=== PATIENT | male | born 1985 | race Caucasian/White ===

== ENCOUNTER 2018-03-26 12:09 | Emergency (ER) | payer OTHER ==
[~2018-03-26] VITALS: Ht 175.3 cm; Wt 76.2 kg
[~2018-03-26 12:09] MED LIST: ACETAMINOPHEN-1 EAC1 PO; CIPRO500 M1 PO; HYDROCODON-ACE1 EAC7 PO; HYDROXYZINE HCL25 M1; KEFLEX500 MG PO; LEVSIN0.125 MG PO; NAPROSYN500 MG PO; NOHOMEMEDICATIONS; PERCOCET 7.5-31 EACH PO; ROBAXIN 750 MG750 M1 PO; SENOKOT-S1 TA1 PO; ULTRAM 50MG TAB50 MG PO
[2018-03-26] MEDS ORDERED: ACETAMINOPHEN-1 EAC1 PO (12:29)
[2018-03-26] MEDS ORDERED: IBUPROFEN 600600 M1 PO (12:29)
[2018-03-26] MEDS ORDERED: KEFLEX500 M1 PO (12:29)
[2018-03-26 12:54] VITALS: BP 167/84
== END 2018-03-26 12:55 | disposition home or self-care (01) ==
LOC: M.ERS 12:09
DX: S61.012A Laceration without foreign body of left thumb without damage to nail, initial encounter (principal); F41.9 Anxiety disorder, unspecified; F17.210 Nicotine dependence, cigarettes, uncomplicated; W26.0XXA Contact with knife, initial encounter; Y93.89 Activity, other specified; Y92.89 Other specified places as the place of occurrence of the external cause; Y99.0 Civilian activity done for income or pay

== ENCOUNTER 2018-06-19 11:08 | Emergency (ER) | payer OTHER ==
[~2018-06-19] VITALS: Ht 177.8 cm; Wt 74.8 kg
[~2018-06-19 11:08] MED LIST changes: +IBUPROFEN 600600 M1 PO; +KEFLEX500 M1 PO
[2018-06-19 12:50] VITALS: BP 124/79
== END 2018-06-19 12:51 | disposition home or self-care (01) ==
LOC: M.ERS 11:08
DX: S61.212A Laceration without foreign body of right middle finger without damage to nail, initial encounter (principal); F41.9 Anxiety disorder, unspecified; F17.210 Nicotine dependence, cigarettes, uncomplicated; W26.8XXA Contact with other sharp object(s), not elsewhere classified, initial encounter; Y93.89 Activity, other specified; Y92.89 Other specified places as the place of occurrence of the external cause; Y99.8 Other external cause status

== ENCOUNTER 2019-03-03 11:57 | Emergency (ER) | payer OTHER ==
[~2019-03-03] VITALS: Ht 175.3 cm; Wt 83.9 kg
[2019-03-03 12:32] LABS: ABSOLUTE BASOPHILS 0.1 thou/uL (0.0-0.2); ABSOLUTE EOSINOPHILS 0.2 thou/uL (0.0-0.7); ABSOLUTE LYMPHOCYTES 2.3 thou/uL (0.8-5.3); ABSOLUTE MONOCYTES 0.5 thou/uL (0.0-1.2); ABSOLUTE NEUTROPHILS 8.1 thou/uL (1.6-8.1); BASOPHILS 0.5 %; EOSINOPHILS 1.7 %; HEMOGLOBIN 16.1 gm/dL (14.0-18.0); LYMPHOCYTES 20.6 %; MCH 31.6 pg (26.0-34.0); MCHC 34.9 g/dL (28.0-37.0); MCV 90.5 fL (80.0-100.0); MONOCYTES 4.9 %; MPV 8.1 fl. (7.2-11.1); NUCLEATED RBCS 0 /100WBC; PLATELET COUNT* 225 thou/uL (150-400); POLYS 72.3 %; RBC 5.08 mil/uL (4.50-6.00); RDW-CV 12.3 % (10.5-14.5); WBC 11.2 thou/uL (4.0-11.0)
[2019-03-03 12:36] LABS: URINE BLOOD 3+ (Negative); URINE CLARITY CLEAR; URINE COLOR STRAW; URINE GLUCOSE-RANDOM NEGATIVE (Negative); URINE KETONES NEGATIVE (Negative); URINE LEUKOCYTES-REFLEX NEGATIVE (Negative); URINE NITRITE-REFLEX NEGATIVE (Negative); URINE PROTEIN 2+ (Negative); URINE SPECIFIC GRAVITY 1.025 (1.005-1.030)
[2019-03-03 12:37] LABS: CALCIUM 8.9 mg/dL (8.5-10.1); CREATININE 1.1 mg/dL (0.6-1.3); POTASSIUM 3.7 mmol/L (3.5-5.1)
[2019-03-03 12:38] LABS: ICTOTEST (BILI CONFIRMATORY) Negative (Negative); URINE BILIRUBIN 1+ (Negative)
[2019-03-03 12:41] LABS: BACTERIA-REFLEX 1-9 Few /HPF (None Seen); CASTS None Seen /LPF (None Seen); CRYSTALS None Seen /LPF (None Seen); MUCUS 4-6 Moderate strn/LPF (None Seen); SQUAMOUS 0-3 Few /LPF (0-3); URINE WBC-REFLEX 0-5 Rare /HPF (0-5)
[2019-03-03 12:41] LABS: TOTAL BILIRUBIN 0.7 mg/dL (<0.1-1.0); TOTAL PROTEIN 7.4 g/dL (6.4-8.2)
[2019-03-03] MEDS ORDERED: FLOMAX0.4 MG PO (13:27)
[2019-03-03] MEDS ORDERED: NORCO 5-325 TA1 EAC1 PO (13:27)
[2019-03-03] MEDS ORDERED: IBUPROFEN 800800 M1 PO (13:27)
[2019-03-03] MEDS ORDERED: ONDANSETRON HCL4 M2 PO (13:27)
[2019-03-03 13:52] VITALS: BP 123/72
== END 2019-03-03 13:53 | disposition home or self-care (01) ==
LOC: M.ERS 11:57
PROVIDERS: Nurse Practitioner Family
DX: N20.1 Calculus of ureter (principal); F17.210 Nicotine dependence, cigarettes, uncomplicated